=== PATIENT | male | born 1980 | race Caucasian/White ===

== ENCOUNTER 2017-03-01 12:52 | Outpatient (CLI) | payer BC ==
[~2017-03-01] VITALS: Ht 172.7 cm; Wt 83.9 kg
[2017-03-01] MEDS ORDERED: NS 1,000 ML IV SCH (13:00)
--- NOTE | 2017-03-01 14:41 | ROOR ---
Patient Name: Stan Cisneros Procedure Date: 03/01/2017 2:18 PM Date of : 1980 Age: 36 Room: [facility] Gender: Male Note Status: Finalized Procedure: Colonoscopy Indications: Hematochezia Providers: Vish VALENCIA MD Referring MD: MANOLO HE DO Requesting Provider: Medicines: Monitored Anesthesia Care Complications: No immediate complications. Procedure: Pre-Anesthesia Assessment: - The heart rate, respiratory rate, oxygen saturations, blood pressure, adequacy of pulmonary ventilation, and response to care were monitored throughout the procedure. The Colonoscope was introduced through the anus and advanced to the cecum, identified by appendiceal orifice and ileocecal valve. The colonoscopy was performed without difficulty. The patient tolerated the procedure well. The quality of the bowel preparation was good. Findings: The perianal exam findings include non-thrombosed external hemorrhoids and non-thrombosed internal hemorrhoids. The colon (entire examined portion) appeared normal. Non-thrombosed prolapsed external and internal hemorrhoids were found during retroflexion. The hemorrhoids were moderate. Impression: - Non-thrombosed external hemorrhoids (small) and moderate prolapsing non-thrombosed internal hemorrhoids found on perianal exam. - The entire examined colon is normal. - No specimens collected. Recommendation: - Refer to a surgeon. Vish Valencia MD Vish VALENCIA MD 03/01/2017 2:41:09 PM This report has been signed electronically. Number of Addenda: 0 Note Initiated On: 03/01/2017 2:18 PM Estimated Blood Loss: Estimated blood loss: none.
[2017-03-01 15:15] VITALS: BP 134/68
== END 2017-03-01 15:15 | disposition home or self-care (01) ==
LOC: M OPP 12:52
PROVIDERS: ATTEND Internal Medicine Gastroenterology
DX: K92.1 Melena (principal); K64.8 Other hemorrhoids; K64.4 Residual hemorrhoidal skin tags

== ENCOUNTER 2018-03-19 07:36 | Emergency (ER) | payer BC | END 2018-03-19 08:56 | disposition home or self-care (01) | LOC: M ED 07:36 | DX: M51.26 Other intervertebral disc displacement, lumbar region (principal) | CPT/HCPCS: 72131 ==